=== PATIENT | male | born 1960 | race Caucasian/White ===

== ENCOUNTER 2019-04-06 19:59 | Emergency (ER) | payer BC, OTHER ==
[2019-04-06 20:13] VITALS: TEMP 98; BMI 19.5
[2019-04-06] MEDS ORDERED: ALBUTEROL SO4 2.5/IPRATROPIUM 0.5 INH SOL 3 ML VIAL.NEB. NEB ONE ×2 (20:21→20:23)
[2019-04-06 20:48] VITALS: BP 151/104; PULSE 89
[2019-04-06] MEDS ORDERED: predniSONE 20 MG TABLET (UD) PO ONE (21:16)
[2019-04-06] MEDS ORDERED: predniSONE 20 MG TABLET (UD) ONE (21:22)
--- NOTE | 2019-04-06 23:30 | PDOC ---
Documentation entered by Jolly Mendez SCRIBE, acting as scribe for Justina Moser MD. Justina Moser MD: This documentation has been prepared by the Andrea childers Maria, SCRIBE, under my direction and personally reviewed by me in its entirety. I confirm that the documentation accurately reflects all work, treatment, procedures, and medical decision making performed by me. History of Present Illness - General Chief Complaint: Respiratory Stated Complaint: BRONCHITIS,SENT FROM URGENT CARE Time Seen by Provider: 04/06/19 20:04 History Source: Patient - History of Present Illness Initial Comments: 04/06/19 20:48 Patient is a 58 year old male with a significant PMH of smoking ( pack a day) who was referred to the emergency department by Urgent Care for unimproved cough , having an O2 saturation of 89%, and a BP of 155/109. As per patient, he reports feeling SOB, having body aches, and a persistent cough with green sputum on 03/29, he denies taking any medicine for his symptoms. He states going to Urgent Care on 04/06 and was diagnosed with acute bronchitis and was given p.o steroids,albuterol and antibiotics with no minimal relief of symptoms prompting him to Urgent Care today. As per patient he reports he stopped smoking cigarettes and marijuana when he was diagnosed with acute bronchitis. The patient denies chest pain, headache and dizziness. Denies fever, chills, nausea, vomiting, diarrhea and constipation. Denies dysuria, frequency, urgency and hematuria. Allergies: NKDA Past surgical history: None reported. Social history: Current everyday smoker, 35 years. Daily marijuana use. Past History - Past Medical History Allergies/Adverse Reactions: Allergies Allergy/AdvReac Type Severity Reaction Status Date / Time No Known Allergies Allergy Verified 04/06/19 20:05 Home Medications: Ambulatory Orders Nebulizer [Truneb Nebulizer] 1 each MC TID #1 each 04/06/19 predniSONE [Deltasone -] 40 mg PO DAILY #10 tablet 04/06/19 COPD: No - Psycho Social/Smoking Cessation Hx Smoking History: Current every day smoker Have you smoked in the past 12 months: Yes Number of Cigarettes Smoked Daily: 10 If you are a former smoker, when did you quit?: 6 DAYS AGO Information on smoking cessation initiated: Yes Hx Alcohol Use: No Drug/Substance Use Hx: Yes (MARIJUANA) Review of Systems - Review of Systems Able to Perform ROS?: Yes Comments:: 04/06/19 20:48 GENERAL/CONSTITUTIONAL: No fever or chills. No weakness. HEAD, EYES, EARS, NOSE AND THROAT: No change in vision. No ear pain or discharge. No sore throat. CARDIOVASCULAR:+SOB. No chest pain RESPIRATORY: +cough. No wheezing, or hemoptysis. GASTROINTESTINAL: No nausea, vomiting, diarrhea or constipation. GENITOURINARY: No dysuria, frequency, or change in urination. MUSCULOSKELETAL: No joint or muscle swelling or pain. No neck or back pain. SKIN: No rash NEUROLOGIC: No headache, vertigo, loss of consciousness, or change in strength/ sensation. ENDOCRINE: No increased thirst. No abnormal weight change. HEMATOLOGIC/LYMPHATIC: No anemia, easy bleeding, or history of blood clots. ALLERGIC/IMMUNOLOGIC: No hives or skin allergy. *Physical Exam - Vital Signs Last Vital Signs Temp Pulse Resp BP Pulse Ox 98 F 89 15 151/104 H 91 L 04/06/19 20:08 04/06/19 20:38 04/06/19 20:38 04/06/19 20:38 04/06/19 20:38 - Physical Exam 04/06/19 20:48 GENERAL: Awake, alert, and fully oriented, in no acute distress HEAD: No signs of trauma EYES: PERRLA, EOMI, sclera anicteric, conjunctiva clear ENT: Auricles normal inspection, hearing grossly normal, nares patent, oropharynx clear without exudates. Moist mucosa NECK: Normal ROM, supple, no lymphadenopathy, JVD, or masses LUNGS:+bilateral base expiratory crackles. Breath sounds equal, clear to auscultation bilaterally. No wheezes. HEART: Regular rate and rhythm, normal S1 and S2, no murmurs, rubs or gallops ABDOMEN: Soft, nontender, normoactive bowel sounds. No guarding, no rebound. No masses EXTREMITIES: Normal range of motion, no edema. No clubbing or cyanosis. No cords, erythema, or tenderness NEUROLOGICAL: Cranial nerves II through XII grossly intact. Normal speech, normal gait SKIN: Warm, Dry, normal turgor, no rashes or lesions noted. ED Treatment Course - RADIOLOGY Radiology Studies Ordered: Category Date Time Status CHEST PA & LAT [RAD] Stat Radiology 04/06/19 20:36 Ordered - Medications Given in the ED: ED Medications Discontinued Medications Generic Name Dose Route Start Last Admin Trade Name Laith PRN Reason Stop Dose Admin Albuterol/Ipratropium 1 amp 04/06/19 20:21 04/06/19 20:27 Duoneb - NEB 04/06/19 20:22 1 amp ONCE ONE Administration Medical Decision Making - Medical Decision Making As noted above, this 58-year-old man with a long history of tobacco and cannabis smoking presents with 10-day history of productive cough, shortness of breath and fatigue. No fever noted. He was seen by urgent care 5 days ago and prednisone/azithromycin/albuterol prescribed. Patient finished azithromycin and prednisone taper today but had persistent cough and shortness of breath and was seen again by urgent care. He was referred here from the urgent care center for further evaluation and treatment. Exam as noted above. Patient received DuoNeb nebulizer treatment with good results: Patient states he felt significantly better after the treatment. Although the patient reportedly had normal chest x-ray performed last week, repeat chest x-ray was ordered to evaluate for development of pneumonia or other acute pulmonary complications. Preliminary interpretation of chest x-ray: Flattening of diaphragms and expanded lung abdi consistent with COPD; no infiltrates, masses, effusions noted Clinical presentation consistent with persistent acute bronchitis in patient with risk factors for COPD (has never been diagnosed with this). Bronchodilator nebulizer treatments should be continuedpatient states that he will be buying a larger unit because his 's unit [which he had been using last week] is quite small and did not have a good flow of vapor. Also, prednisone will be continued at 40 mg daily (first dose given tonight in the ER) . Since the azithromycin taper finished today, will defer adding new antibiotic at this time. Patient states that he will see his PMD (in [place]) tomorrow. He should return to the ER if he has any worsening of shortness of breath or develops fever/chills Discharge - Discharge Information Problems reviewed: Yes Clinical Impression/Diagnosis: Bronchitis Condition: Stable Disposition: HOME - Additional Discharge Information Prescriptions: Nebulizer [Truneb Nebulizer] 1 each MC TID #1 each predniSONE [Deltasone -] 40 mg PO DAILY #10 tablet - Follow up/Referral - Patient Discharge Instructions Patient Printed Discharge Instructions: DI for Acute Bronchitis Additional Instructions: Prednisone 40 mg daily Continue albuterol nebulizer treatments 3 times a day Follow-up with your general medical doctor within the next 48 hours Return to ER if you have persistent shortness of breath, wheezing or develop fever - Post Discharge Activity
== END 2019-04-06 21:27 | disposition home or self-care (01) ==
LOC: FER 19:59
PROC: 3E0F7GC Introduction of Other Therapeutic Substance into Respiratory Tract, Via Natural or Artificial Opening (ICD-10-PCS; principal; 2019-04-06)
DX: J40 Bronchitis, not specified as acute or chronic (principal); F17.210 Nicotine dependence, cigarettes, uncomplicated
CPT/HCPCS: 71046-TC-FY; 99283-25

== ENCOUNTER 2024-08-24 02:25 | Emergency (ER) | payer BC ==
[2024-08-24 02:32] VITALS: TEMP 98.9; BMI 18.8
[2024-08-24] MEDS ORDERED: DEXAMETHASONE SOD PHOSPHATE 4 MG/1 ML VIAL ONE (02:47)
[2024-08-24] MEDS: ALBUTEROL SO4 2.5/IPRATROPIUM 0.5 INH SOL 3 ML VIAL.NEB. NEB SCH (03:03)
[2024-08-24] MEDS: DEXAMETHASONE SOD PHOSPHATE 10 MG/1 ML VIAL IVPB ONE (03:03)
[2024-08-24 03:34] LABS: ABSOLUTE IMMATURE GRANULOCYTES 0.02 x10^3/uL (0.0-0.031); BASOPHILS # 0.09 x10^3/uL (0.01-0.08); EOSINOPHIL % 2.8 % (0.8-7.0); EOSINOPHILS # 0.18 x10^3/uL (0.04-0.54); MCHC 33.3 g/dl (32.3-36.5); MEAN CELL VOLUME 91.0 fl (79.0-92.2); MEAN PLT VOLUME 9.3 fl (9.4-12.4); MONOCYTE # 0.61 x10^3/uL (0.30-0.82); MONOCYTE % 9.4 % (5.3-12.2); RDW 12.9 % (12.2-16.4)
[2024-08-24 04:03] LABS: GLUCOSE,RANDOM 93.0 mg/dL (74-106)
[2024-08-24 04:05] LABS: CO2 30.0 mmol/L (21-32)
[2024-08-24 04:06] LABS: CREATININE 0.9 mg/dL (0.55-1.3); SGOT/AST 21.0 U/L (15-37); SGPT/ALT 34.0 U/L (13-61)
[2024-08-24 04:07] LABS: TOT PROT 6.5 g/dl (6.4-8.2)
[2024-08-24 04:09] LABS: ALK PHOS 90.0 U/L (45-117)
[2024-08-24] MEDS: AZITHROMYCIN 500 MG TABLET PO ONE (05:00)
[2024-08-24] MEDS ORDERED: AZITHROMYCIN 500 MG TABLET ONE (05:04)
[2024-08-24 05:31] VITALS: BP 137/76; PULSE 88; RESP 19
[2024-08-24 07:18] LABS: HIV INTERPRETATION NEGATIVE (NEGATIVE)
[2024-08-25 15:31] LABS: HCV DIAGNOSTIC IN-HOUSE W/RFLX REACTIVE (NONREACTIVE)
== END 2024-08-24 05:33 | disposition home or self-care (01) ==
LOC: JER 02:25
PROC: 3E033GC Introduction of Other Therapeutic Substance into Peripheral Vein, Percutaneous Approach (ICD-10-PCS; principal; 2024-08-24)
PROC: 3E0F7GC Introduction of Other Therapeutic Substance into Respiratory Tract, Via Natural or Artificial Opening (ICD-10-PCS; 2024-08-24)
PROC: 3E0F7GC Introduction of Other Therapeutic Substance into Respiratory Tract, Via Natural or Artificial Opening (ICD-10-PCS; 2024-08-24)
DX: R06.02 Shortness of breath (principal); R05.9 Cough, unspecified
CPT/HCPCS: 36415; 71045-TC-FY; 80053; 83735; 84484; 85025; 86803; 87389; 87522; 87637-QW; 93005; 93010; 99285-25; J1100